=== PATIENT | female | born 1955 | race Caucasian/White ===

== ENCOUNTER 2022-02-15 16:32 | Outpatient (CLI) | payer OTHER, SELFPAY ==
--- NOTE | ~2022-02-15 | XR_ITS ---
XR lumbar spine 2-3V DATE: 02/15/2022 17:07 INDICATION: Lower left-sided back pain. No injury. TECHNIQUE: AP, lateral, coned lateral lumbosacral views COMPARISON: None FINDINGS: Surgical clips, right upper quadrant, consistent with cholecystectomy. Diffuse osteopenia. There are 4 functional lumbar vertebrae. There is mild to moderate degenerative disc disease of the lumbar spine. No fracture or bone destruct ion or spondylolisthesis is evident. Included lower thoracic and lumbar pedicles are intact. The sacr oiliac joints are unremarkable. IMPRESSION: Mild to moderate degenerative disc disease of the lumbar spine Osteopenia Reviewed, dictated and finalized at location A. RIOR DESIGNER
== END 2022-02-15 16:33 | disposition home or self-care (01) ==
LOC: ANHIMG 16:39
PROVIDERS: PCP Internal Medicine; Visit Provider Nurse Practitioner
DX: M85.88 Other specified disorders of bone density and structure, other site (principal); M51.36 Other intervertebral disc degeneration, lumbar region
CPT/HCPCS: 72100

== ENCOUNTER 2022-03-05 12:14 | Emergency (ER) | payer OTHER, SELFPAY ==
--- NOTE | ~2022-03-05 | CT_ITS ---
EXAMINATION: CT brain wo con INDICATION: Left-sided facial droop COMPARISON: None TECHNIQUE: Standard unenhanced head CT. The dose-length product (DLP) was 529.67 mGy-cm. The mA was a djusted according to patient size. Iterative reconstruction technique was employed. FINDINGS: There is no acute intraparenchymal hemorrhage. No evidence of mass lesion. No evidence of a cute infarction. There is mild periventricular and subcortical hypodensity probably related to small vessel ischemic disease. There is mild prominence of the sulci and ventricles related to cerebral atr ophy. Intracranial calcified cerebral atherosclerosis is noted. There are no extra-axial collections. There is no mass effect or midline shift. Changes in the globes are likely from ocular lens surgery. The visualized sinuses and mastoid air cells are well aerated. IMPRESSION: 1. No acute intracranial abnormality. 2. Age related findings. Reviewed, dictated and finalized at location A. ESSING INSPECTOR
--- NOTE | ~2022-03-05 | XR_ITS ---
EXAMINATION: XR chest 1V INDICATION: Left-sided facial droop TECHNIQUE: PA view of the chest is obtained. COMPARISON: None available FINDINGS: The lungs are free of acute opacities. No pleural effusion or pneumothorax. The cardiomedia stinal silhouette is normal. Surgical clips in the right upper quadrant are likely from prior cholecy stectomy. IMPRESSION: 1. No acute cardiopulmonary abnormality. Reviewed, dictated and finalized at location A. NESS PARTNER
[2022-03-05 12:28] VITALS: BP 183/71; PULSE 73; RESP 14; TEMP 36.5; O2SAT 100
--- NOTE | 2022-03-05 12:32 | ECG_ITS ---
Measurements Intervals [place] Rate: 67 P: 24 AK: 176 QRS: 6 QRSD: 89 T: 18 QT: 393 QTc: 417 Interpretive Statements SINUS RHYTHM WITHIN NORMAL LIMITS NO PREVIOUS ECG AVAILABLE FOR COMPARISON Electronically Signed On 03-05-2022 17:28:22 PIPE CLEANER by Toño Foster M.D.
[2022-03-05 14:12] LABS: Prothrombin Time 12.7 Seconds (11.1-14.7)
[2022-03-05 14:13] LABS: Partial Thromboplastin Time 21.2 SECONDS (22.3-36.8)
[2022-03-05 14:14] LABS: Alanine Aminotransferase 29 U/L (6-35); Albumin Level 4.1 g/dL (3.5-5.1); Alkaline Phosphatase 153 U/L (38-126); Anion Gap 6 mmol/L (8-16); Aspartate Amino Transferase 29 U/L (14-36); Bilirubin,Total 0.7 mg/dL (0.2-1.3); Blood Urea Nitrogen 12 mg/dL (7-17); Calcium 8.7 mg/dL (8.4-10.2); Carbon Dioxide 29 mmol/L (22-30); Chloride 100 mmol/L (98-107); Estimated CRCL calculation 69 ml/min; Estimated Glomerular Filt Rate > 60; Glucose 186 mg/dL (65-110); Potassium 4.4 mmol/L (3.4-5.0); Sodium 135 mmol/L (137-145)
[2022-03-05 14:22] LABS: Basophils Absolute Auto 0.1 K/mm3 (0.0-0.1); Basophils Percent Auto 1.6 % (0.2-1.2); Eosinophils Absolute Auto 0.5 K/mm3 (0-0.3); Eosinophils Percent Auto 5.5 % (0-4.4); Hemoglobin 13.4 g/dL (12.0-15.0); Immature Granulocyte Absolute 0.02 K/mm3 (0.00-0.031); Immature Granulocyte Percent A 0.2 % (0-0.5); Lymphocytes Absolute Auto 2.26 K/mm3 (0.9-3.2); Lymphocytes Percent Auto 27.5 % (18.3-44.2); Mean Corpuscular HGB Conc 31.9 g/dl (32-36); Mean Corpuscular Hemoglobin 30.1 pg (26-34); Mean Corpuscular Volume 94.4 fl (80-100); Mean Platelet Volume 8.8 fl (7.4-10.4); Monocytes Absolute Auto 0.7 K/mm3 (0.1-0.6); Monocytes Percent Auto 8.6 % (2.6-8.5); Neutrophils Absolute Auto 4.7 K/mm3 (1.3-6.7); Neutrophils Percent Auto 56.6 % (45.5-73.1); Platelet Count Result 454 k/mm3 (150-375); Red Blood Count 4.45 M/mm3 (4.2-5.4); Red Cell Distribution Width 13.3 % (11.5-14.5); Troponin I < 0.012 ng/mL (0.000-0.034); White Blood Count 8.2 K/mm3 (4.5-10.0)
[2022-03-05 15:06] VITALS: BP 185/80; PULSE 74; RESP 18; O2SAT 98
--- NOTE | 2022-03-05 15:24 | ED.GENADULT ---
HPI - General Adult General Chief complaint: Neuro Symptoms/Deficit Stated complaint: left sided facial drooping since Tuesday Time Seen by Provider: 03/05/22 15:09 History of Present Illness HPI narrative: Patient is a 66-year-old female with a history of diabetes presenting with facial droop. Patient states that she has had problems with her sinuses since Tuesday. States that she had a lot of congestion and then 2 days ago she noticed that the left side of her face looked slightly droopy. States that she initially attributed it to her sinus problems but then she woke up yesterday and she noticed that the entire left side of her face drooped. She saw her PCP earlier today who advised she come to the ED for further evaluation. Other than left-sided facial droop patient denies any other symptoms. No numbness or weakness, speech changes, gait difficulties, extremity weakness. Denies fevers or chills, chest pain, shortness of breath, cough, abdominal pain, nausea or vomiting, diarrhea, leg swelling Related Data Home Medications Medication Instructions Recorded Confirmed blood-glucose meter (OneTouch #1 ea 01/31/19 02/22/22 Ultra2 Meter kit) lancets (OneTouch UltraSoft #50 ea 01/31/19 02/22/22 Lancets) pen needle, diabetic 31 gauge x #30 ea 01/31/19 02/22/2203/31 (Pen Needle) aspirin 81 mg tablet,delayed 81 mg PO DAILY 05/12/20 02/22/22 release ferrous sulfate 325 mg (65 mg 325 mg PO BID 01/06/21 02/22/22 iron) tablet semaglutide 0.25 mg or 0.5 mg (2 0.25 mg subcut WEEKLY 03/05/22 mg/1.5 mL) subcutaneous pen injector (Ozempic) Allergies Allergy/AdvReac Type Severity Reaction Status Date / Time No Known Allergies Allergy Verified 03/05/22 12:15 Review of Systems Review of Systems: All systems reviewed & are unremarkable except as noted in HPI and below PMFSH Past Medical History Medical History Chicken pox Diabetes Electrolyte abnormality High cholesterol Hypertension Hypothyroid Measles Mumps Obesity Screening mammogram, encounter for Thrombocytosis Surgical History Surgical History History of cataract surgery Hx of cholecystectomy (~1997) Family History Family History Father Patient's father is , Onset Age: 91 Mother Uterine cancer Diabetes mellitus Hypertension Malignant tumor of ovary Sibling Diabetes mellitus brother Hypertension brother Social History Social History Social History: caffeine-6 cups daily Smoking status: Never smoker Alcohol intake: never Substance use: never Substance use type: does not use Lack of Transportation: No Lack of Food: Never True Current Housing: I Have Housing Concerned About Future Housing: No Difficulty Paying Gas/Electric Bills: No Difficulty Paying for Meds: No Currently Unemployed: No Education: High School Diploma/GED Difficulty w/ Childcare or Family Care: No Additional living arrangements comments: Additional occupation/education comments: office secretary Gender identity (if verbalized by the patient): Female Sexual Orientation (if Verbalized by the Patient): Straight or Heterosexual Exam Narrative: GENERAL: Well-appearing, well-nourished, and in no acute distress. HEAD: Normocephalic, atraumatic. EYES: PERRLA and EOMI. ENT: Nares clear, no rhinorrhea or epistaxis. Mucous membranes moist. NECK: Supple. CHEST: Clear to auscultation. No respiratory distress. HEART: Regular rate and rhythm. No murmur heard. Normal peripheral pulses. ABDOMEN: Soft, nontender, nondistended, normal active bowel sounds. EXTREMITIES: Normal range of motion. No edema. SKIN: Warm, dry, no rash. NEURO: Left-sided facial droop involving the forehead,
== END 2022-03-05 16:40 | disposition home or self-care (01) ==
PROVIDERS: Emergency Provider Emergency Medicine; PCP Internal Medicine
DX: G51.0 Bell's palsy (principal); I10 Essential (primary) hypertension; E11.9 Type 2 diabetes mellitus without complications; E78.00 Pure hypercholesterolemia, unspecified; E03.9 Hypothyroidism, unspecified; E66.9 Obesity, unspecified; Z68.38 Body mass index [BMI] 38.0-38.9, adult; Z98.49 Cataract extraction status, unspecified eye; Z79.82 Long term (current) use of aspirin; Z79.85 Long-term (current) use of injectable non-insulin antidiabetic drugs
CPT/HCPCS: 36415; 70450; 71045; 80053; 84484; 85025; 85610; 85730; 93005; 99284

== ENCOUNTER 2022-10-28 07:31 | Day surgery (SDC) | payer MEDICARE, SELFPAY ==
[2022-10-12 12:33] VITALS: BMI 37.6
[2022-10-13 11:12] VITALS: BMI 32.7
[2022-10-28 08:15] VITALS: BP 161/77; PULSE 95; RESP 18; TEMP 36.6; O2SAT 99
[2022-10-28 08:31] LABS: Glucose Point of Care 162 mg/dl (65-105)
--- NOTE | 2022-10-28 08:38 | WPDANESEPPF ---
Anes - Initial Pre Proc Eval Procedure: Operation Date: 10/28/22 09:30 Proposed Procedures p Screening Colonoscopy - Rashard Bedolla MD Date/Time: 10/28/22 08:38 Surgeon: Rashard Bedolla MD Pre Op Diagnosis: Neoplasm Screening Patient Data Age: 67 Gender: F Height: 1.6 m Weight: 99.1 kg Last Vital Signs Temp 36.6 C 10/28/22 08:15 Pulse 95 10/28/22 08:15 Resp 18 10/28/22 08:15 BP 161/77 H 10/28/22 08:15 Pulse Ox 99 10/28/22 08:15 O2 Del Method Room Air 10/28/22 08:15 Allergies Allergy/AdvReac Type Severity Reaction Status Date / Time No Known Allergies Allergy Verified 10/28/22 08:12 Home Medications Medication Instructions Recorded Confirmed Type blood-glucose meter (OneTouch #1 ea 01/31/19 10/28/22 History Ultra2 Meter kit) lancets (OneTouch UltraSoft #50 ea 01/31/19 10/28/22 History Lancets) pen needle, diabetic 31 gauge x #30 ea 01/31/19 10/28/22 History 1/4 (Pen Needle) aspirin 81 mg tablet,delayed 81 mg PO DAILY 05/12/20 10/28/22 History release blood sugar diagnostic (OneTouch #100 ea 06/18/20 10/28/22 Rx Ultra Blue Test Strip) ferrous sulfate 325 mg (65 mg 325 mg PO DAILY 01/06/21 10/28/22 History iron) tablet atorvastatin 40 mg tablet See Rx Instructions .Route 07/13/22 10/28/22 Rx .COMPLEX #90 tabs levothyroxine 125 mcg tablet See Rx Instructions .Route 07/13/22 10/28/22 Rx .COMPLEX #90 tabs omeprazole 20 mg capsule,delayed 20 mg PO DAILY #90 caps 07/13/22 10/28/22 Rx release potassium chloride 10 mEq 10 meq PO DAILY #30 tabs 07/26/22 10/28/22 Rx tablet,extended release hydrochlorothiazide 12.5 mg tablet 12.5 mg PO DAILY #30 tabs 08/18/22 10/28/22 Rx semaglutide 0.25 mg or 0.5 mg (2 0.25 mg (0.2 mL) subcut WEEKLY #2 09/10/22 10/28/22 Rx mg/1.5 mL) subcutaneous pen mL injector (Ozempic) Laboratory Tests 10/28/22 08:23 POC Capillary Glucose 162 H mg/dl (65-105) Patient hx anesthesia problems: none Family hx anesthesia problems: none Results Review: All pre-operative results and documents have been reviewed as part of the pre-operative evaluation. [facility] Past Medical History Medical History Chicken pox Diabetes Electrolyte abnormality High cholesterol Hypertension Hypothyroid Measles Mumps Obesity Screening mammogram, encounter for Thrombocytosis Surgical History Surgical History History of cataract surgery Hx of cholecystectomy (~1997) Family History Family History Father Patient's father is , Onset Age: 91 Mother Uterine cancer Diabetes mellitus Hypertension Malignant tumor of ovary Sibling Diabetes mellitus brother Hypertension brother Social History Social History Social History: caffeine-6 cups daily Smoking status: Never smoker Alcohol intake: current Substance use: never Substance use type: does not use Lack of Transportation: No Lack of Food: Never True Current Housing: I Have Housing Concerned About Future Housing: No Difficulty Paying Gas/Electric Bills: No Difficulty Paying for Meds: No Currently Unemployed: No Education: High School Diploma/GED Difficulty w/ Childcare or Family Care: No Living arrangements: alone Additional living arrangements comments: Occupation/Education: occupation 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
--- NOTE | 2022-10-28 09:03 | PM.HPGS ---
History of Present Illness History of Present Illness Consent: Risks, benefits, and alternatives have been discussed and questions answered. Patient agrees to proceed with procedure. Chief complaint: Neoplasm Screening Narrative: Virginia Saucedo is a 67 year old female here for screening colonoscopy, last one 20 years ago Review of Systems Constitutional: Constitutional: Denies headache(s) and Denies weakness Eyes: Eyes: Denies blurry vision ENT: Reports Normal hearing present, Denies headache(s) and Denies neck pain Cardiovascular: Cardiovascular: Denies chest pain and Denies dyspnea Respiratory: Respiratory: Denies dyspnea Gastrointestinal: Gastrointestinal: Reports no additional gastrointestinal complaints Genitourinary: Genitourinary: Denies dysuria Musculoskeletal: Musculoskeletal: Denies neck pain Integumentary/Breasts: Skin/Breast: Denies dry skin Neurologic: Reports Normal hearing present, Denies headache(s) and Denies weakness Psychiatric: Psychiatric: Denies anxiety Endocrine: Endocrine: Denies change in body appearance Hematologic/Lymphatic: Hematologic/Lymphatic: Denies easy bleeding Allergic/Immunologic: Allergic/Immunologic: Denies urticaria PMFSH Past Medical History Medical History Chicken pox Diabetes Electrolyte abnormality High cholesterol Hypertension Hypothyroid Measles Mumps Obesity Screening mammogram, encounter for Thrombocytosis Surgical History Surgical History History of cataract surgery Hx of cholecystectomy (~1997) Family History Family History Father Patient's father is , Onset Age: 91 Mother Uterine cancer Diabetes mellitus Hypertension Malignant tumor of ovary Sibling Diabetes mellitus brother Hypertension brother Social History Social History Social History: caffeine-6 cups daily Smoking status: Never smoker Alcohol intake: current Substance use: never Substance use type: does not use Lack of Transportation: No Lack of Food: Never True Current Housing: I Have Housing Concerned About Future Housing: No Difficulty Paying Gas/Electric Bills: No Difficulty Paying for Meds: No Currently Unemployed: No Education: High School Diploma/GED Difficulty w/ Childcare or Family Care: No Living arrangements: alone Additional living arrangements comments: Occupation/Education: occupation 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 Gender identity (if verbalized by the patient): Female Sexual Orientation (if Verbalized by the Patient): Straight or Heterosexual Spiritual care concerns: No Meds Home Medications and Allergies Home Medications Medication Instructions Recorded Confirmed Type blood-glucose meter (OneTouch #1 ea 01/31/19 10/28/22 History Ultra2 Meter kit) lancets (OneTouch UltraSoft #50 ea 01/31/19 10/28/22 History Lancets) pen needle, diabetic 31 gauge x #30 ea 01/31/19 10/28/22 History 1/4 (Pen Needle) aspirin 81 mg tablet,delayed 81 mg PO DAILY 05/12/20 10/28/22 History release blood sugar diagnostic (OneTouch #100 ea 06/18/20 10/28/22 Rx Ultra Blue Test Strip) ferrous sulfate 325 mg (65 mg 325 mg PO DAILY 01/06/21 10/28/22 History iron) tablet atorvastatin 40 mg tablet See Rx Instructions .Route 07/13/22 10/28/22 Rx .COMPLEX #90 tabs levothyroxine 125 mcg tablet See Rx Instructions .Route 07/13/22 10/28/22 Rx .COMPLEX #90 tabs omeprazole 20 mg capsule,delayed 20 mg PO DAILY #90 caps 07/13/22 10/28/22 Rx release potassium chloride 10 mEq 10 meq PO DAILY #30 tabs 07/26/22 10/28/22 Rx tablet,extended release hydrochlorothiazide 12.5 mg tablet 12.5 mg PO DAILY #30 tabs 08/18/22 10/28/22 Rx semagl
[2022-10-28] MEDS: LACTATED RINGERS 1,000 ML 150 ML IV CONT (09:09)
[2022-10-28 09:21] VITALS: BP 125/62; PULSE 75; RESP 16; O2SAT 97
[2022-10-28 09:31] VITALS: BP 133/79; PULSE 72; RESP 17; O2SAT 99
[2022-10-28 09:41] VITALS: BP 157/80; PULSE 69; RESP 16; O2SAT 99
--- NOTE | 2022-10-28 10:23 | WPDANESPN ---
Anes - Prog Note Post-Op Date/Time: 10/28/22 10:23 Cardiovascular status: normal Respiratory status: normal Airway patency: baseline Mental status: baseline Post-Op hydration status: normal Vital Signs: Last Vital Signs Temp 36.6 C 10/28/22 08:15 Pulse 69 10/28/22 09:41 Resp 16 10/28/22 09:41 BP 157/80 H 10/28/22 09:41 Pulse Ox 99 10/28/22 09:41 O2 Del Method Room Air 10/28/22 09:41 Pain Score (VAS): 0/10 I/O: Intake & Output 10/27/22 10/28/22 10/28/22 23:59 07:59 15:59 Intake Total 300 Balance 300 10/28/22 08:23 POC Capillary Glucose 162 H Patient Feedback: Patient satisfied with anesthetic care.
== END 2022-10-28 09:53 | disposition home or self-care (01) ==
PROVIDERS: PCP Internal Medicine; Visit Provider Internal Medicine Gastroenterology
PROC: 0DJD8ZZ Inspection of Lower Intestinal Tract, Via Natural or Artificial Opening Endoscopic (ICD-10-PCS; CPT 45378; principal; 2022-10-28 09:30)
DX: Z12.11 Encounter for screening for malignant neoplasm of colon (principal); K64.8 Other hemorrhoids
CPT/HCPCS: 45378

== ENCOUNTER 2022-11-23 15:39 | Outpatient (CLI) | payer MEDICARE, SELFPAY ==
--- NOTE | ~2022-11-23 | MM_ITS ---
EXAMINATION: MM screening bladimir BI w teresa HISTORY: Screening mammogram TECHNIQUE: Craniocaudal and mediolateral oblique 3-D tomosynthesis images were obtained and synthetic 2-D images were generated. CAD analysis was submitted and interpreted. COMPARISON: 03/18/2014 BREAST PARENCHYMAL COMPOSITION:The breasts are almost entirely fatty FINDINGS: No suspicious mass, calcification, or architectural distortion are identified in either roya ast to suggest malignancy. There has been no suspicious interval change. IMPRESSION: No mammographic evidence of malignancy. Recommend routine screening mammography in one year. BI-RADS Category 1: Negative Reviewed, dictated and finalized at location .
== END 2022-11-23 15:40 | disposition home or self-care (01) ==
PROVIDERS: PCP Internal Medicine; Visit Provider Obstetrics & Gynecology
DX: Z12.31 Encounter for screening mammogram for malignant neoplasm of breast (principal)
CPT/HCPCS: 77063; 77067

== ENCOUNTER 2024-08-01 14:50 | Outpatient (CLI) | payer MEDICARE, SELFPAY ==
--- NOTE | ~2024-08-01 | MM_ITS ---
EXAMINATION: MM screening bladimir BI w teresa HISTORY: Screening TECHNIQUE: Craniocaudal and mediolateral oblique 3-D tomosynthesis images were obtained and synthetic 2-D images were generated. CAD analysis was submitted and interpreted. COMPARISON: 11/23/2022 BREAST PARENCHYMAL COMPOSITION: Not Dense: The breasts are almost entirely fatty. FINDINGS: There is no evidence of suspicious mass, calcification, or architectural distortion to sugg est malignancy in either breast. There has been no suspicious interval change. IMPRESSION: 1. No mammographic evidence of malignancy. 2. Recommend routine screening mammography in one year. BI-RADS Category 1: Negative Reviewed, dictated and finalized at location A.
--- OUTSIDE RECORDS SUMMARY | 2024-08-01 14:54 | XMS_ITS | Clinical Summary ---
Author Organization [facility] Address [address] [place] [address] Care Team Providers Care Him Coder Name Role Phone Dilip Moss DO Primary Care Provider Allergies No known active allergies Medications Blood-Glucose Meter (OneTouch Ultra2 Meter) OneTouch Ultra2 Meter Active lancets (OneTouch UltraSoft Lancets) OneTouch UltraSoft Lancets Active atorvastatin (LIPITOR) 20 mg tablet TAKE 1 TABLET BY MOUTH ONCE DAILY 0 Active OneTouch Ultra Blue Test Strip Strip USE 1 STRIP TO CHECK GLUCOSE ONCE DAILY 0 Active hydroCHLOROthi azide (HYDRODIURIL) 12.5 mg tablet TAKE 1 TABLET BY MOUTH ONCE DAILY 0 Active levothyroxine 125 mcg tablet levothyroxine 125 mcg tablet Active metFORMIN (GLUCOPHAGE) 500 mg tablet TAKE 1 TABLET BY MOUTH THREE TIMES DAILY FOR 3 MONTHS 0 Active omeprazole (PriLOSEC) 20 mg Capsule, Delayed Release(E.C.) TAKE 1 CAPSULE BY MOUTH ONCE DAILY 0 Active Active Problems Problem Noted Date Diagnosed Date Iron deficiency anemia 05/12/2020 Reactive thrombocytosis 02/08/2020 Resolved Problems Problem Noted Date Diagnosed Date Resolved Date Essential thrombocytosis 01/25/2020 Family History Medical History Relation Name Comments Ovarian Cancer Mother Relation Name Status Comments Brother 1 Alive Brother 2 Father Mother Social History Tobacco Use Types Packs/Day Years Used Date Smoking Tobacco: Never Smokeless Tobacco: Never Alcohol Use Standard Drinks/Week Comments Never 0 (1 standard drink = 0.6 oz pur e alcohol) Comments No Sex and Gender Information Value Date Recorded Sex Assigned at Not on file Legal Sex Female 1:05 PM CDT Gender Identity Not on file Sexual Orientation Not on file Last Filed Vital Signs Vital Sign Reading Time Taken Comments Blood Pressure 136/72 02/08/2020 8:23 AM FIRING PIN GAUGER Pulse 72 02/08/2020 8:23 AM FIRING PIN GAUGER Temperature 36.4 C (97.5 F) 02/08/2020 8:23 AM FIRING PIN GAUGER Respiratory Rate - - Oxygen Saturation 97% 02/08/2020 8:23 AM FIRING PIN GAUGER Inhaled Oxygen Concentration - - Weight 91.6 kg (202 lb) 02/08/2020 8:23 AM FIRING PIN GAUGER Height 157.5 cm (5' 2 ) 02/08/2020 8:23 AM FIRING PIN GAUGER Body Mass Index 36.95 02/08/2020 8:23 AM FIRING PIN GAUGER Plan of Treatment Health Maintenance Due Date Last Done Comments DTAP/TDAP/TD VACCINES (1 - Tdap) 1976 BREAST CANCER SCREENING 1997 COLORECTAL SCREENING 2002 Colorectal Cancer Screening 2002 FIT-DNA Q 3 years 2002 FIT/FOBT Q 1 year 2002 Flex Sig/CT Colonography Q 5 years 2002 PNEUMOCOCCAL VACCINE 50+ YEARS (1 of 1 - PCV) 08/29/19 08 ZOSTER VACCINE (1 of 2) 08/29/2007 OSTEOPOROSIS SCREENING 2022 INFLUENZA VACCINE (#1) 2023 RSV VACCINE (60+ or ) (1 - 1-dose 75+ series) 2032 Care Teams Him Coder Relationship Specialty Start Date End Date Dilip Moss DO [address] [id number] PCP - General Internal Medicine 01/25/20
== END 2024-08-01 14:51 | disposition home or self-care (01) ==
LOC: ANHIMG 14:51
PROVIDERS: PCP Internal Medicine; Visit Provider Nurse Practitioner
DX: Z12.31 Encounter for screening mammogram for malignant neoplasm of breast (principal); Z78.0 Asymptomatic menopausal state
CPT/HCPCS: 77063; 77067

== ENCOUNTER 2024-09-02 12:20 | Emergency (ER) | payer MEDICARE, SELFPAY ==
--- NOTE | ~2024-09-02 | XR_ITS ---
Left foot Technique: AP, oblique, and lateral views were obtained. Clinical History: Pain Findings: There is acute transverse fracture the distal fifth metatarsal shaft. No other fracture or dislocation seen.. Joint spaces are preserved without erosive or degenerative change. Soft tissues ar e unremarkable. Impression: Acute transverse fracture the distal fifth metatarsal shaft. Reviewed, dictated and finalized at location . Impression: Acute transverse fracture the distal fifth metatarsal shaft.
[2024-09-02 12:29] VITALS: BP 165/69; PULSE 72; RESP 16; TEMP 36.3; O2SAT 100
--- NOTE | 2024-09-02 13:22 | ED.LOWEXIN ---
HPI - Extremity Injury (Lower) General Chief Complaint: Extremity Injury, Lower Stated Complaint: fall Source: patient Mode of arrival: ambulatory Limitations: no limitations History of Present Illness HPI Narrative: 69 y/o female presented for c/o Left foot pain and swelling after she fell out of bed last night. says she was getting up but struck the foot on the nearby foot stool. Denies numbness, tingling or deformity. Related Data Home Medications ?Medication ?Instructions ?Recorded ?Confirmed ?Last Taken ?Type blood-glucose meter (OneTouch #1 ea 01/31/19 06/15/24 Unknown History Ultra2 Meter kit) lancets (OneTouch UltraSoft #50 ea 01/31/19 06/15/24 Unknown History Lancets) pen needle, diabetic 31 gauge x #30 ea 01/31/19 06/15/24 Unknown History 03/31 (Pen Needle) aspirin 81 mg tablet,delayed 81 mg PO DAILY 05/12/20 09/02/24 Unknown History release ferrous sulfate 325 mg (65 mg 325 mg PO DAILY 01/06/21 09/02/24 Unknown History iron) tablet Allergies Allergy/AdvReac Type Severity Reaction Status Date / Time No Known Allergies Allergy Verified 09/02/24 12:29 Review of Systems Review of Systems: CONSTITUTIONAL: Denies body aches, fever, chills EYES: Denies visual changes ENT: Denies rhinorrhea, congestion CARDIOVASCULAR: Denies chest pain, palpitations, or edema. RESPIRATORY: Denies cough or dyspnea. SKIN: Denies rash, itching, or wounds. MUSCULOSKELETAL: reports left foot pain NEUROLOGIC: Denies headache, numbness, tingling, or weakness. All systems reviewed & are unremarkable except as noted in HPI and below PMFSH Past Medical History Medical History Screening mammogram, encounter for Diabetes High cholesterol Hypertension Obesity Hypothyroid Thrombocytosis Electrolyte abnormality Mumps Measles Chicken pox Surgical History Surgical History History of cataract surgery Hx of cholecystectomy (~1997) Family History Family History Father Patient's father is , Onset Age: 91 Mother Uterine cancer Diabetes mellitus Hypertension Malignant tumor of ovary Sibling Diabetes mellitus brother Hypertension brother Social History Social History Social History: caffeine-6 cups daily Smoking status: Never smoker Alcohol intake: current Substance use: never Substance use type: does not use Do You Feel Safe in your Home?: Yes Lack of Transportation: No Lack of Food: Never True Current Housing: I Have Housing Concerned About Future Housing: No Difficulty Paying Gas/Electric Bills: No Difficulty Paying for Meds: No Currently Unemployed: No Education: High School Diploma/GED Difficulty w/ Childcare or Family Care: No Living arrangements: alone Additional living arrangements comments: Occupation/Education: occupation 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 Please see nursing chart for further information. There is no relevant family history pertinent to the presenting complaint Exam Narrative: GENERAL: Well-appearing, well-nourished, and in no acute distress. CHEST: Speaks in full sentences. No respiratory distress. HEART: Regular rate and rhythm. Normal and equal peripheral pulses. EXTREMITIES: Left foot with moderate swelling, tenderness over the 5th metatarsal. No significant bruising or notable deformity. Foot has normal strength and sensation, No open wounds. pulse palpable and equal bilaterally, skin warm, dry, pink. Capillary refill less than 3 seconds. SKIN: Warm, dry NEURO: Alert and oriented x3. PSYCH: Normal mood and affect Course Course Emergency Course: Patient is aware of diagnosis, understands and agrees to treatment plan. Anticipatory guidance given. Patient agrees to follow-up as directed and is aware of reasons to seek care at the emergency department. Portions of this record may have been created with voice recognition software Level of Care: Express Care Visit Vital Signs Vital signs: Vital Signs Temperature 97.3 F L 09/02/24 12:29 Pulse Rate 72 09/02/24 12:29 Respiratory Rate 16 09/02/24 12:29 Blood Pressure 165/69 H 09/02/24 12:29 Pulse Oximetry 100 09/02/24 12:29 Temperature 97.3 F L 09/02/24 12:29 Pulse Rate 72 09/02/24 12:29 Respiratory Rate 16 09/02/24 12:29 Blood Pressure 165/69 H 09/02/24 12:29 Pulse Oximetry 100 09/02/24 12:29 Reviewed MDM - Extremity Injury (Lower) MDM Narrative Medical decision making narrative: Discussed physical exam findings and x-ray. Patient is not appropriate for crutches. We discussed options for walking boot. She elects to purchase through [facility] or [facility]. SHELBY applied. Advised supportive measures and signs/symptoms to go to the ER. Pt is appropriate for outpt treatment and f/u. Differential Diagnosis Differential diagnosis: Likely other (Plantar fasciitis, heel spur, foot strain/sprain, metatarsal fracture, metatarsalgia, downs's neuroma) Imaging Data Radiologist's impression: Patient: Virginia Saucedo : 1955 MR#: [id number] Age: 69 Acct:[id number] Loc: [facility] ADM Date: 09/02/24Attending Dr: Left foot Technique: AP, oblique, and lateral views were obtained. Clinical History: Pain Findings: There is acute transverse fracture the distal fifth metatarsal shaft. No other fracture or dislocation seen.. Joint spaces are preserved without erosive or degenerative change. Soft tissues are unremarkable. Impression: Acute transverse fracture the distal fifth metatarsal shaft. Discharge Plan Discharge Clinical Impression: Foot fracture, left Qualifiers: Encounter type: initial encounter Fracture type: closed Qualified Code(s): S92.902A - Unspecified fracture of left foot, initial encounter for closed fracture Patient Disposition: Home Condition: Stable Instructions: Foot Fracture in Adults (ED), Walking Boot (ED) Additional Instructions: We discussed You will need to purchase a walking boot. [facility] [address] [address] Rest, avoid excessive walking ice and elevate the left foot Motrin 600mg every 8 hours, as needed, for pain (take with food). Tylenol 1000mg every 8 hours. Keep the walking boot in place when walking. Go to the ER immediately for increased pain, tingling/numbness, swelling, redness, and fever Follow up with Orthopedic Surgery in 1-2 days for further evaluation - please call today for an appointment. Patient Language: [place] Prescriptions: No Action (DME) blood-glucose meter [OneTouch Ultra2 Meter] Kit See Rx Instructions .ROUTE .MEDSUPPLY Qty: 1 Rx Instructions: As directed (DME) pen needle, diabetic [Pen Needle] 31 gauge x 1/4 needle See Rx Instructions .ROUTE .MEDSUPPLY Qty: 30 Rx Instructions: As directed (DME) lancets [OneTouch UltraSoft Lancets] Misc See Rx Instructions .ROUTE .MEDSUPPLY Qty: 50 Rx Instructions: As directed ferrous sulfate 325 mg (65 mg iron) tablet 325 mg PO DAILY aspirin 81 mg tablet,delayed release (DR/EC) 81 mg PO DAILY (DME) OneTouch Ultra Blue Test Strip Strip See Rx Instructions .ROUTE .MEDSUPPLY Qty: 100 2RF Rx Instructions: Use to test BS once daily. potassium chloride 10 mEq tablet extended release 10 meq PO DAILY Qty: 90 3RF levothyroxine 125 mcg tablet See Rx Instructions .ROUTE .COMPLEX Qty: 90 1RF Dose Instruction: Take 1 tablet by mouth once daily Rx Instructions: Take 1 tablet by mouth once daily atorvastatin 40 mg tablet See Rx Instructions .ROUTE .COMPLEX Qty: 90 1RF Dose Instruction: TAKE 1 TABLET BY MOUTH EVERY DAY AT BEDTIME Rx Instructions: TAKE 1 TABLET BY MOUTH EVERY DAY AT BEDTIME semaglutide 0.25 mg or 0.5 mg(2 mg/1.5 mL) pen injector 0.5 mg subcut WEEKLY Qty: 2 3RF lisinopril 10 mg tablet 10 mg PO DAILY Qty: 90 1RF omeprazole 20 mg capsule,delayed release(DR/EC) 20 mg PO DAILY Qty: 90 1RF Follow-up/Referrals: Anthony Rivera MD [Physician] - ( Acute transverse fracture the distal fifth metatarsal shaft.) Dilip Moss DO [Primary Care Provider] - Time of Disposition: 13:37
== END 2024-09-02 13:40 | disposition home or self-care (01) ==
PROVIDERS: Emergency Provider Nurse Practitioner Family; PCP Internal Medicine
DX: S92.352A Displaced fracture of fifth metatarsal bone, left foot, initial encounter for closed fracture (principal); W22.8XXA Striking against or struck by other objects, initial encounter; E11.9 Type 2 diabetes mellitus without complications; Z79.85 Long-term (current) use of injectable non-insulin antidiabetic drugs; E78.00 Pure hypercholesterolemia, unspecified; I10 Essential (primary) hypertension; D75.839 Thrombocytosis, unspecified; E66.9 Obesity, unspecified; Z68.38 Body mass index [BMI] 38.0-38.9, adult; Z79.82 Long term (current) use of aspirin
CPT/HCPCS: 73630; 99214; G0463

== ENCOUNTER 2024-10-08 12:17 | Outpatient (CLI) | payer MEDICARE, SELFPAY ==
--- NOTE | ~2024-10-08 | DEXA_ITS ---
Bone Density Report Name: YOLI JAMA Age: 69 Sex: Female Ethnicity: White Date of : 1955 Indication: postmenopausal; screening for osteoporosis; height loss; Referring Provider: MARLIN IRVIN Study: Bone densitometry was performed. Exam Date: October 08, 2024 Accession number: [id number] Bone Density: Region BMD T-score Z-score Classification AP Spine(L1-L4) 0.751 -2.7 -0.8 Osteoporosis Femoral Neck (Left) 0.545 -2.7 -1.1 Osteoporosis Total Hip (Left) 0.722 -1.8 -0.5 Osteopenia Femoral Neck (Right) 0.555 -2.6 -1.0 Osteoporosis Total Hip (Right) 0.667 -2.3 -0.9 Osteopenia Total Hip Mean 0.694 -2.1 -0.7 Osteopenia World Health Organization criteria for BMD impression classify patients as: Normal (T-score at or above -1.0), Osteopenia (T-score between -1.0 and -2.5), or Osteoporosis (T-score at or below -2.5). 10-year Fracture Risk: FRAX not reported because: Some T-score for Spine Total or Hip Total or Femoral Neck at or below -2.5 Clinical Information Provided by Patient: Has used the following medications: Vitamin D, Calcium Patient maximum height was 63.0 Menopause Age: 42 No regular weight bearing exercise Drinks caffeinated beverages Onset of menses at age 15 Number of children 0 Impression: The patient has osteoporosis, based on the Total Spine T-score. Discussion: INCREASED RISK OF FRACTURE. BONE DENSITY IS UNDESIRABLY LOW AT ONE OR MORE SKELETAL SITES, CONSISTENT WITH POSTMENOPAUSAL OSTEOPOROSIS. This patient's lowest T-score meets the World Health Organization's (WHO) criteria for osteoporosis at one or more sites (T-score -2.5 or below). In untreated patients, the risk of osteoporotic fracture increases approximately two-fold for each 1.0 SD decrease in T-score. Low bone density is not the only risk factor for fracture; also consider factors such as patient's age, frailty or poor health, risk of falling, risk of injury, previous osteoporotic fracture, family history of osteoporosis, cigarette smoking, low body weight, etc. Not everyone with low bone mineral density has osteoporosis; osteomalacia and other metabolic bone disorders should also be considered. Patients who have osteoporosis should be evaluated for specific diseases and conditions (secondary causes) that may cause or contribute to bone loss. The [place] Association of Clinical Endocrinologists (AACE) and National Osteoporosis Foundation (NOF) recommend pharmacologic intervention for all postmenopausal women whose T-score is in this range. The patient should follow a healthful lifestyle (good nutrition with adequate calcium and vitamin D, and appropriate weight-bearing exercise). Follow-Up: Consider a repeat BMD and Vertebral Fracture Assessment (VFA) exam in 2 years or sooner if medically necessary, to reassess this patient's status. Reported by: JORDAN on 10/08/2024 12:57:00 PM. Reviewed, dictated and finalized at location A.
--- OUTSIDE RECORDS SUMMARY | 2024-10-08 12:23 | XMS_ITS | Clinical Summary ---
Author Organization [facility] Address [address] [place] [address] Care Team Providers Care Sausage Stuffer Name Role Phone Dilip Moss DO Primary [...] Comments Blood Pressure 136/72 02/08/2020 8:23 AM INK BLENDER Pulse 72 02/08/2020 8:23 AM INK BLENDER Temperature 36.4 C (97.5 F) 02/08/2020 8:23 AM INK BLENDER Respiratory Rate - - Oxygen Saturation 97% 02/08/2020 8:23 AM INK BLENDER Inhaled Oxygen Concentration - - Weight 91.6 kg (202 lb) 02/08/2020 8:23 AM INK BLENDER Height 157.5 cm (5' 2) 02/08/2020 8:23 AM INK BLENDER Body Mass Index 36.95 02/08/2020 8:23 AM INK BLENDER Plan of Treatment Health Maintenance Due Date [...] 08/29/2007 OSTEOPOROSIS SCREENING 2022 INFLUENZA VACCINE (#1) 2024 RSV VACCINE (60+ or ) (1 - 1-dose 75+ series) 2032 Care Teams Sausage Stuffer Relationship Specialty Start Date End Date Dilip Moss DO [address] [id number] PCP - General Internal Medicine 01/25/20
== END 2024-10-08 12:18 | disposition home or self-care (01) ==
LOC: ANHIMG 12:21
PROVIDERS: PCP Internal Medicine; Visit Provider Nurse Practitioner
DX: M81.0 Age-related osteoporosis without current pathological fracture (principal); M85.89 Other specified disorders of bone density and structure, multiple sites; Z78.0 Asymptomatic menopausal state; Z13.820 Encounter for screening for osteoporosis; Z12.31 Encounter for screening mammogram for malignant neoplasm of breast
CPT/HCPCS: 77080

== ENCOUNTER 2024-11-21 10:31 | Emergency (ER) | payer MEDICARE, SELFPAY ==
--- OUTSIDE RECORDS SUMMARY | 2013-11-05 04:28 | XMS_ITS | Continuity of Care Document ---
Author Organization [facility] Address [address] [place] [address] Phone Care Team Providers Care Fire Safety Director Name Role Phone Unavailable Unavailable Unavailable Allergies, Adverse Reactions, Alerts Substance Reaction Status Criticality No Known Drug Allergies Other Active No I nformation Medications Medication Instructions Dosage Effective Dates (start - stop) Status Comments Levothroid 150 mcg Tab TAKE ONE TABLET B Y MOUTH EVERY DAY - Active HYDROCHLOROTHIAZIDE 25 MG TAB TAKE ONE-HALF TABLET BY MOUTH IN THE MORNING - Active SIMVASTATIN 20 MG TABLET TAKE ONE TABLET BY MOUTH AT BEDTIME - Active OMEPRAZOLE DR 20 MG CAPSULE 1 QD-daily - Active K-DUR ER 20 MEQ TABLET 0 DIRECTE - Active take 40 mg x 3 days and then 20 mg daily after Advance Directives Directive Yes / No Effective Date File Name No Information Encounters Encounter Description Practice Location Reason(s) For Visit Diagnoses Date Provider Providers Copied on Encounter [facility] [address], [place], [place], [address] , [place] tel: [phone] [facility] No Information 4 No Information [facility], [address], [place], [place], [address] , [place] tel: [phone] [facility] No Information 3 No Information [employer] [address], [place], [place], [address] , [place] tel: [phone] [facility] No Information 3 No Information [facility] [address], [place], [place], [address] , tel: [phone] Conversion Department No Information 1 Conversion Doctor. [address] [place], [address], [place]. [facility], [address], [place], [place], [address] , tel: [phone] [facility] LONG-TERM USE MEDS NECESOPHAGEAL REFLUXHYPERLIPID EMIA NEC/NOSFEVER NOS 1 No Information [facility], [address], [place], [place], [address] , tel: [phone] [facility] ACUTE URI NOS 0 Conversion Doctor. [facility] [place], [address], [place]. [facility], [address], [place], [place], [address] , [place] tel: [phone] [facility] BENIGN HYPERTENSIONHYPO THYROIDISM NOSRECTAL & ANAL HEMORRHAGE 9 No Information [facility], [address], [place], [place], [address] , [place] tel: [phone] [facility] MALAISE AND FATIGUE NECCHRO KIDNEY DIS STAGE IIBEN HY KID W CR KID I-IV 8 No Information [facility], [address], [place], [place], [address] , [place] tel: [phone] [facility] DERMATITIS NOS 5 No Information [facility], [address], [place], [place], [address] , tel: [phone] [facility] SOLVENT DERMATITIS [address] [facility] [address], [place], [place], [address] , tel: [phone] [facility] CHR BLOOD LOSS ANEMIA 4 No Information Family History Family Member Type Diagnosis Age At Onset No Information Payers Payer name Insurance type Covered constitution party ID Authoriza tion(s) No Information Social History Type Description Quantity Date Captured Comments Sex Female Smoking Status No Information Chief Complaint And Reason For Visit No Information Reason For Referral Reason For Referral No Information History Of Present Illness Encounter Date Complaint History Of Prese nt Illness No Information Functional Status Date Functional Assessmen t No Information Instructions Date Instruction Additional Infor mation No Information Assessments Type Assessment Date No Information Patient Care Teams Name Effective Dates (start - stop) Status Members No Information
--- OUTSIDE RECORDS SUMMARY | 2013-11-05 04:28 | XMS_ITS | Continuity of Care Document ---
Author Organization [facility] Address [address] [place] [address] Phone Care Team Providers Care Roll Former Name Role Phone Unavailable Unavailable Unavailable Allergies, [...] Diagnoses Date Provider Providers Copied on Encounter [facility], [address], [place], [place], [address] , [place] tel: [phone] [facility] No Information 4 No Information [facility], [address], [place], [place], [address] , [place] tel: [phone] [facility] No Information 3 No Information [facility], [address], [place], [place], [address] , [place] tel: [phone] [facility] No Information 3 No Information [facility], [address], [place], [place], [address] , tel: [phone] Conversion Department No Information 1 Conversion Doctor. [address] [place], [address], [place]. [facility], [address], [place], [place], [address] , tel: [phone] [facility] LONG-TERM USE MEDS NECESOPHAGEAL REFLUXHYPERLIPID EMIA NEC/NOSFEVER NOS 1 No Information [facility], [address], [place], [place], [address] , tel: [phone] [facility] ACUTE URI NOS 0 Conversion Doctor. [facility] [place], [address], [place]. [facility], [address], [place], [place], [address] , [place] tel: [phone] [facility] BENIGN HYPERTENSIONHYPO THYROIDISM NOSRECTAL & ANAL HEMORRHAGE 9 No Information [facility], [address], [place], [place], [address] , [place] tel: [phone] [facility] MALAISE AND FATIGUE NECCHRO KIDNEY DIS STAGE IIBEN HY KID W CR KID I-IV 8 No Information [facility], [address], [place], [place], [address] , [place] tel: [phone] [facility] DERMATITIS NOS 5 No Information [facility], [address], [place], [place], [address] , tel: [phone] [facility] SOLVENT DERMATITIS 5 No Information [facility] [address], [place], [place], [address] , tel: [phone] [facility] CHR BLOOD LOSS ANEMIA 4 No Information Family History Family Member Type Diagnosis Age At Onset No Information Payers Payer name Insurance type Covered republican ID Authoriza tion(s) No Information Social History [...]
[2024-11-21 10:36] VITALS: BP 167/72; PULSE 66; RESP 18; TEMP 36.6; O2SAT 98
--- OUTSIDE RECORDS SUMMARY | 2024-11-21 10:55 | XMS_ITS | Clinical Summary ---
Author Organization [facility] Address [address] [place] [address] Care Team Providers Care Ciaio Counter Molder Name Role Phone Dilip Moss DO Primary [...] Comments Blood Pressure 136/72 02/08/2020 8:23 AM CLINICAL DATA MANAGEMENT MANAGER Pulse 72 02/08/2020 8:23 AM CLINICAL DATA MANAGEMENT MANAGER Temperature 36.4 C (97.5 F) 02/08/2020 8:23 AM CLINICAL DATA MANAGEMENT MANAGER Respiratory Rate - - Oxygen Saturation 97% 02/08/2020 8:23 AM CLINICAL DATA MANAGEMENT MANAGER Inhaled Oxygen Concentration - - Weight 91.6 kg (202 lb) 02/08/2020 8:23 AM CLINICAL DATA MANAGEMENT MANAGER Height 157.5 cm (5' 2) 02/08/2020 8:23 AM CLINICAL DATA MANAGEMENT MANAGER Body Mass Index 36.95 02/08/2020 8:23 AM CLINICAL DATA MANAGEMENT MANAGER Plan of Treatment Health Maintenance Due Date [...] - 1-dose 75+ series) 2032 Care Teams Ciaio Counter Molder Relationship Specialty Start Date End Date Dilip Moss DO [address] [id number] PCP - General Internal Medicine 01/25/20
--- NOTE | 2024-11-21 11:04 | ED_ITS ---
HPI - Eye Problem General Chief complaint: Skin/Abscess/Foreign Body Stated complaint: swelling under right eye Time Seen by Provider: 11/21/24 11:04 Source: patient Mode of arrival: ambulatory Limitations: no limitations History of Present Illness HPI Narrative: 69 yo F presents with swelling, itching, redness to R side of face around R eye and ear. Started to have itching to R ear and around R eye 4 days ago. Woke up next morning with swelling that is becoming progressivley worse. Now has itching to neck. Has intermittently taken benadryl without relief of symptoms. All systems reviewed and negative except as noted above. Related Data Home Medications ?Medication ?Instructions ?Recorded ?Confirmed ?Last Taken ?Type blood-glucose meter (OneTouch #1 ea 01/31/19 09/05/24 Unknown History Ultra2 Meter kit) lancets (OneTouch UltraSoft #50 ea 01/31/19 09/05/24 U nknown History Lancets) pen needle, diabetic 31 gauge x #30 ea 01/31/19 Unknown History 1/4 (Pen Needle) aspirin 81 mg tablet,delayed 81 mg PO DAILY 05/12/20 0 09/05/24 Unknown History release ferrous sulfate 325 mg (65 mg 325 mg PO DAILY 01/06/21 09/05/24 Unknown History iron) tablet Allergies Allergy/AdvReac Type Severity Reaction Status Date / Time No Known Allergies Allergy Verified 11/21/24 10:46 [facility] Past Medical History Medical History Screening mammogram, encounter for Diabetes High cholesterol Hypertension Obesity Hypothyroid Thrombocytosis Electrolyte abnormality Mumps Measles Chicken pox Surgical History Surgical History History of cataract surgery Hx of cholecystectomy (~1997) Family History Family History Father Patient's father is , Onset Age: 91 Mother Uterine cancer Diabetes mellitus Hypertension Malignant tumor of ovary Sibling Diabetes mellitus brother Hypertension brother Social History Social History Social History: caffeine-6 cups daily Smoking status: Never smoker Alcohol intake: current Substance use: never Substance use type: does not use Do You Feel Safe in your Home?: Yes Lack of Transportation: No Lack of Food: Never True Current Housing: I Have Housing Concerned About Future Housing: No Difficulty Paying Gas/Electric Bills: No Difficulty Paying for Meds: No Currently Unemployed: No Education: High School Diploma/GED Difficulty w/ Childcare or Family Care: No Living arrangements: alone Additional living arrangements comments: Occupation/Education: occupation Additional occupation/education comments: church secretary Gender identity (if verbalized by the patient): Female Sexual Orientation (if Verbalized by the Patient): Straight or Heterosexual Spiritual care concerns: No Comments At time of signature, agree with nursing past medical, surgical, social and family history. There is no relevant family history pertinent to the presenting complaint. Exam Narrative: GENERAL: This is a well-nourished, well-developed patient, in no apparent distress. HEAD: normocephalic, atraumatic. EYES: PERRL. Sclera clear/white. Vision is grossly intact. No drainage bilaterally. EARS: right external ear is erythematous and swollen. No fluctuance concerning for abscess. No warmth on palpation. Left external ear normal. NOSE: External nose normal NECK: Neck supple, non-tender without lymphadenopathy, masses or thyromegaly. CARDIOVASCULAR: Regular rate and rhythm without murmurs, gallops, or rubs. RESPIRATORY: Clear to auscultation. Breath sounds equal bilaterally. No wheezes, rales, or rhonchi. SKIN: warm, Dry, intact with no suspicious lesions or rash, good texture and turgor. There is soft tissue swelling around right eye. Nontender. There is erythema noted to right cheek without warmth on palpation. No fluctuance concerning for abscess. NEURO: awake, alert, and oriented to person, place and time. There were no obvious focal neurologic abnormalities. EXTREMITIES: No joint tenderness, effusion, or edema noted. Course Course Level of Care: Express Care Visit Vital Signs Vital signs: Vital Signs Temperature 36.6 C 11/21/24 10:36 Pulse Rate 66 11/21/24 10:36 Respiratory Rate 18 11/21/24 10:36 Blood Pressure 167/72 H 11/21/24 10:36 Pulse Oximetry 98 11/21/24 10:36 Oxygen Delivery Room Air 11/21/24 10:36 Temperature 36.6 C 11/21/24 10:36 Pulse Rate 66 11/21/24 10:36 Respiratory Rate 18 11/21/24 10:36 Blood Pressure 167/72 H 11/21/24 10:36 Pulse Oximetry 98 11/21/24 10:36 Oxygen Delivery Room Air 11/21/24 10:36 Reviewed MDM - Eye Problem MDM Narrative Medical decision making narrative: to to swelling and erythema around right eye will prescribe Augmentin as precaution for periorbital cellulitis. Swelling and itching more concerning for allergic reaction, will prescribe prednisone. Patient agrees with plan of care. She is able to completely open her right eye. There is no drainage. Differential Diagnosis Differential diagnosis: Likely periorbital cellulitis Discharge Plan Discharge Clinical Impression: Allergic reaction Cellulitis, periorbital Qualifiers: Laterality: right Qualified Code(s): L03.213 - Periorbital cellulitis Patient Disposition: Home Condition: Stable Instructions: Antibiotic Form, Periorbital Cellulitis (ED) Additional Instructions: take medications as prescribed. Take a daily antihistamine such as Zyrtec while treating allergic reaction symptoms. Take Tylenol or ibuprofen every 6-8 hours as needed for pain. If not improving follow-up with your primary care physician. For any worsening of symptoms go to the ER. Patient Language: Qatari Prescriptions: New prednisone 20 mg tablet 40 mg PO DAILY 5 Days Qty: 10 0RF amoxicillin-pot clavulanate 875-125 mg tablet 1 tablet PO Q12H 10 Days Qty: 20 0RF No Action (DME) blood-glucose meter [OneTouch Ultra2 Meter] Kit See Rx Instructions .ROUTE .MEDSUPPLY Qty: 1 Rx Instructions: As directed (DME) pen needle, diabetic [Pen Needle] 31 gauge x 1/4 needle See Rx Instructions .ROUTE .MEDSUPPLY Qty: 30 Rx Instructions: As directed (DME) lancets [OneTouch UltraSoft Lancets] Misc See Rx Instructions .ROUTE .MEDSUPPLY Qty: 50 Rx Instructions: As directed ferrous sulfate 325 mg (65 mg iron) tablet 325 mg PO DAILY aspirin 81 mg tablet,delayed release (DR/EC) 81 mg PO DAILY (DME) OneTouch Ultra Blue Test Strip Strip See Rx Instructions .ROUTE .MEDSUPPLY Qty: 100 2RF Rx Instructions: Use to test BS once daily. potassium chloride 10 mEq tablet extended release 10 meq PO DAILY Qty: 90 3RF levothyroxine 125 mcg tablet See Rx Instructions .ROUTE .COMPLEX Qty: 90 1RF Dose Instruction: Take 1 tablet by mouth once daily Rx Instructions: Take 1 tablet by mouth once daily atorvastatin 40 mg tablet See Rx Instructions .ROUTE .COMPLEX Qty: 90 1RF Dose Instruction: TAKE 1 TABLET BY MOUTH EVERY DAY AT BEDTIME Rx Instructions: TAKE 1 TABLET BY MOUTH EVERY DAY AT BEDTIME semaglutide 0.25 mg or 0.5 mg(2 mg/1.5 mL) pen injector 0.5 mg subcut WEEKLY Qty: 2 3RF lisinopril 10 mg tablet 10 mg PO DAILY Qty: 90 1RF omeprazole 20 mg capsule,delayed release(DR/EC) 20 mg PO DAILY Qty: 90 1RF Follow-up/Referrals: Dilip Moss DO [Primary Care Provider, Internal Medicine] Time of Disposition: 11:11
== END 2024-11-21 11:15 | disposition home or self-care (01) ==
PROVIDERS: Emergency Provider Nurse Practitioner Family; PCP Internal Medicine
DX: L03.213 Periorbital cellulitis (principal); T78.40XA Allergy, unspecified, initial encounter; E11.9 Type 2 diabetes mellitus without complications; E03.9 Hypothyroidism, unspecified; I10 Essential (primary) hypertension
CPT/HCPCS: 99213; G0463